=== PATIENT | female | born 1970 | race Caucasian/White ===

== ENCOUNTER → 2021-04-07 01:52 | Outpatient (CLI) | payer OTHER, SELFPAY ==
[2021-04-07 17:27] LABS: SARS-CoV-2 RNA PCR Negative
== END ==
PROVIDERS: Visit Provider Surgery Plastic and Reconstructive Surgery
DX: Z01.812 Encounter for preprocedural laboratory examination (principal); Z20.822 Contact with and (suspected) exposure to COVID-19
CPT/HCPCS: C9803; U0003; U0005

== ENCOUNTER 2021-04-10 01:37 | Day surgery (SDC) | payer OTHER, SELFPAY ==
[2021-04-02 12:09] VITALS: BMI 22.6
[2021-04-10] VITALS (9 sets, daily range): BP systolic 92–112; BP diastolic 46–77; PULSE 54–76; RESP 12–20; TEMP 36.2–36.3; O2SAT 100; BMI 23.2
[2021-04-10] MEDS: LACTATED RINGERS 1,000 ML 30 ML IV CONT ×2 (09:25→11:56)
--- NOTE | 2021-04-10 09:51 | WPDHPUPDATE1 ---
History and Physical Update Update Date/Time: 04/10/21 09:51 History and Physical has been reviewed, including an updated exam of the patient. There are NO changes in the patient's condition. Risks, benefits, and alternatives have been discussed and questions answered. Patient agrees to proceed with procedure.
--- NOTE | 2021-04-10 10:13 | WPDANESEPPF ---
Anes - Initial Pre Proc Eval Procedure: Operation Date: 04/10/21 10:30 Proposed Procedures p Bilateral Breast Implant Exchange using Saline - Huber Keys MD Date/Time: 04/10/21 10:13 Surgeon: Huber Keys MD Pre Op Diagnosis: Hx of breast augmentation Patient Data Age: 51 Gender: F Height: 1.73 m Weight: 69.4 kg Allergies Allergy/AdvReac Type Severity Reaction Status Date / Time No Known Allergies Allergy Verified 04/10/21 09:15 Home Medications Medication Instructions Recorded Confirmed Type carisoprodol 350 mg tablet 350 mg PO TID PRN #21 tablet 03/20/21 04/02/21 Rx docusate sodium 100 mg capsule 100 mg PO DAILY #14 cap 03/20/21 04/02/21 Rx ondansetron HCl 4 mg tablet 4 mg PO Q8H #21 tablet 03/20/21 04/02/21 Rx oxycodone-acetaminophen 5 mg-325 1 tablet PO Q6H PRN #15 tablet 03/20/21 04/02/21 Rx mg tablet Patient hx anesthesia problems: none Family hx anesthesia problems: none Results Review: All pre-operative results and documents have been reviewed as part of the pre-operative evaluation. [facility] [place] Surgical History Surgical History History of breast augmentation Social History Social History Years smoked: 10 Smoking status: Former smoker Smoking end date: 02/09/21 Alcohol intake: never Substance use: never Substance use type: does not use Living arrangements: with family Spiritual care concerns: No Anes - Eval Final PreProcedure Day of Procedure 04/10/21 10:13 Patient weight: normal Heart: regular rate and rhythm Lungs: clear to auscultation Airway: Mallampati scale class II Neurological: alert and oriented Last oral intake: >/= 8 hours ASA classification: II Emergent: no Anesthetic plan: proceed Anesthesia type and monitoring: general LMA and standard monitoring Results Review: All pre-operative results and documents have been reviewed as part of the pre-operative evaluation. Informed Consent: The patient's anesthetic plan and its attendant risks and benefits were discussed with the patient/family/POA. Questions were solicited and answers provided to the satisfaction of the patient/family/POA.
--- NOTE | 2021-04-10 10:18 | W.PM.PROC2 ---
Procedure Note - Detailed Date of Procedure 04/10/21 Pre-op Diagnosis Hx of breast augmentation Post-op Diagnosis same Procedure Performed Bilateral breast implant exchange Surgeon Huber Keys MD Anesthesia general Findings Previous implants: Bilateral 68MP-510 Replacement (new) implants: Bilateral Natrelle Saline 600cc filled to 640cc Right - REF# [id number] SN [id number] Left - REF# [id number] SN [id number] Description of Procedure Patient was marked in the preoperative holding area with her verification. She was taken to the operating room placed supine on the operating room table. Anesthesia provided by anesthesiology and prepped and draped in the standard sterile fashion. Surgical time-out was taken. 1% lidocaine and 0.25% Marcaine with epinephrine was used to provide a field block. Tegaderm nipple Cervantes were placed. Fifteen blade used to excise the previous scar. Dissection was continued down until the implant was identified. The implant was a smooth implant. The patient had previously stated she refused sending pathology if it was smooth but was willing to send to pathology, at her expense if it was textured. She understands the risks of not sending the capsule. Implants removed. I copiously irrigated with 3 L of saline containing solution on TUR tubing. Verified strict hemostasis. Capsulotomy was completed as necessary as well as a slight popcorn capsulorrhaphy bilateral on the lateral aspects for lateral migration of her implants previously. I then irrigated with triple antibiotic Betadine solution. Wash my gloves with the antibiotic solution. On the back table all the air was removed from the implants. These were introduced into the pocket. I used to fill kit and filled to the volume as above. This was closed using 2-0 Vicryl followed by 3-0 Monocryl in a running subcuticular 4-0 Monocryl and tissue glue. Fluffs and an surgical bra were placed. Patient was woken taken the PACU without difficulty. All instrument sponge counts were correct at the end the case. Estimated Blood Loss 10 Drains No Packing No Pathology none sent Complications No immediate complications Condition stable Disposition PACU
[2021-04-10] MEDS: ceFAZolin 2 GM/D5W 50 ML 2 GM/50 ML BAG IVPB (10:24)
[2021-04-10] MEDS: LIDO 1%/EPINEPHRINE 1:100,000 50 ML VIAL 60 ML INFILTRATE (10:36)
[2021-04-10] MEDS: fentaNYL CITRATE INJ (*CRX) 100 MCG/2 ML VIAL 25 MCG IV PUSH ×2 (12:32→12:41)
[2021-04-10] MEDS: oxyCODONE HCL (*CRX) 5 MG TAB IR PO (13:14)
== END 2021-04-10 14:07 | disposition home or self-care (01) ==
PROVIDERS: PCP Hospitalist; Visit Provider Surgery Plastic and Reconstructive Surgery
PROC: (CPT 19342; principal; 2021-04-10 10:30)
DX: Z41.1 Encounter for cosmetic surgery (principal); Z87.891 Personal history of nicotine dependence
CPT/HCPCS: 19370; 19325; A9270; J0690; J1100; J1580; J2250; J2405; J2704; J3010; J7030; J7120